=== PATIENT | male | born 1950 | race African-American/Black ===

== ENCOUNTER 2017-07-26 09:46 | Inpatient (IN) | payer OTHER ==
[2017-07-26 10:23] VITALS: BMI 23.1
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
[2017-07-26] MEDS ORDERED: P-EPHED 60MG/TRIPROLIDI 2.5MG TABLET PO PRN (14:40)
[2017-07-26] MEDS ORDERED: MAGNESIUM CITRATE 300 ML BOTTLE PO PRN (14:40)
[2017-07-26] MEDS ORDERED: hydrOXYzine PAMOATE 25 MG CAPSULE (FP) PO PRN (14:40)
[2017-07-26] MEDS ORDERED: MENTHOL/PHENOL 1 EACH UD MM PRN (14:40)
[2017-07-26] MEDS ORDERED: ACETAMINOPHEN 325 MG TABLET (FP) PO PRN (14:40)
[2017-07-26] MEDS ORDERED: LOPERAMIDE HCL 2 MG CAPSULE PO PRN (14:40)
[2017-07-26] MEDS ORDERED: MAG HYDROX/AL HYDROX/SIMETH 30 ML UNIT-DOSE CUP PO PRN (14:40)
[2017-07-26] MEDS ORDERED: MAGNESIUM HYDROX 2400MG/30ML ORAL SUSPENSION 30 ML CUP PO PRN (14:40)
[2017-07-26] MEDS ORDERED: chlordiazePOXIDE HCL 25 MG CAPSULE PO PRN (14:40)
[2017-07-26] MEDS ORDERED: diphenhydrAMINE HCL 50 MG CAPSULE PO PRN (14:40)
[2017-07-26] MEDS ORDERED: IBUPROFEN 400 MG TABLET (FP) PO PRN (14:40)
[2017-07-26] MEDS: GABAPENTIN 400 MG CAPSULE (FP) PO SCH ×2 (15:47→22:30)
[2017-07-26] MEDS ORDERED: ALBUTEROL SO4 6.7 GM HFA INHALER IH PRN (15:53)
[2017-07-26 16:28] LABS: URINE APPEARANCE CLEAR; URINE BILIRUBIN NEGATIVE (NEGATIVE); URINE BLOOD NEGATIVE (NEGATIVE); URINE COLOR LTYELLOW; URINE GLUCOSE (UA) NEGATIVE (NEGATIVE); URINE KETONE NEGATIVE (NEGATIVE); URINE LEUK ESTERASE NEGATIVE (NEGATIVE); URINE NITRITE NEGATIVE (NEGATIVE); URINE PROTEIN NEGATIVE (NEGATIVE); URINE UROBILINOGEN NEGATIVE mg/dL (0.2-1.0)
[2017-07-26] MEDS: PATIENT'S OWN MEDICATION (NON-FORMULARY) (Prednisolone 1% Ophthalmic [Pred Forte 1% -] 1 D OD SCH ×8 (16:35→23:13)
[2017-07-26] MEDS: chlordiazePOXIDE HCL 25 MG CAPSULE PO SCH ×2 (16:47→22:15)
[2017-07-26] MEDS ORDERED: KETOROLAC TROMETHAMINE OD SCH (22:00)
[2017-07-26] MEDS ORDERED: [UNRECOGNIZED DRUG - OTHER] OD SCH (22:00)
[2017-07-26] MEDS ORDERED: OPTHALMIC OD SCH (22:00)
[2017-07-26] MEDS ORDERED: KETOROLAC TROMETHAMINE 0.5% 5 ML BOTTLE OPTHALMIC OD SCH (22:00)
[2017-07-26] MEDS: PILOCARPINE 2% OPHTHALMIC SOLUTION 15 ML BOTTLE OS SCH (22:12)
[2017-07-26] MEDS: CYCLOPENTOLATE HCL 1% OPHTH SOLN 2 ML BOTTLE OD SCH ×3 (22:12→22:32)
[2017-07-26] MEDS: BRIMONIDINE TARTRATE 0.15% OPHTHALMIC 5 ML BOTTLE OS SCH (22:13)
[2017-07-26] MEDS: DORZOLAMIDE 2% HCL OPHTHALMIC SOLUTION 10 ML BOTTLE OS SCH (22:14)
[2017-07-26] MEDS: NAPROXEN 500 MG TABLET (FP) PO SCH (22:14)
[2017-07-26] MEDS: THIAMINE HCL 100 MG TABLET (FP) PO SCH (22:15)
[2017-07-26] MEDS: KETOROLAC TROMETHAMINE 0.5% OD SCH (22:15)
[2017-07-26] MEDS: OPTHALMIC OD SCH (22:15)
[2017-07-27] MEDS: PATIENT'S OWN MEDICATION (NON-FORMULARY) (Prednisolone 1% Ophthalmic [Pred Forte 1% -] 1 D OD SCH ×18 (00:10→17:40)
[2017-07-27] MEDS: GABAPENTIN 400 MG CAPSULE (FP) PO SCH ×3 (06:00→22:20)
[2017-07-27] MEDS: chlordiazePOXIDE HCL 25 MG CAPSULE PO SCH ×4 (06:01→22:20)
[2017-07-27] MEDS: OPTHALMIC OD SCH (06:03)
[2017-07-27] MEDS: KETOROLAC TROMETHAMINE 0.5% OD SCH (06:03)
[2017-07-27] MEDS: PILOCARPINE 2% OPHTHALMIC SOLUTION 15 ML BOTTLE OS SCH ×3 (06:04→21:09)
[2017-07-27] MEDS: BRIMONIDINE TARTRATE 0.15% OPHTHALMIC 5 ML BOTTLE OS SCH ×3 (06:20→21:05)
[2017-07-27] MEDS: DORZOLAMIDE 2% HCL OPHTHALMIC SOLUTION 10 ML BOTTLE OS SCH ×3 (06:21→21:11)
[2017-07-27] MEDS: PATIENT'S OWN MEDICATION (NON-FORMULARY) (Ipratropium/Albuterol Sulfate [Combivent Respima IH PRN ×2 (09:25→22:23)
[2017-07-27 09:46] LABS: MCHC 34.1 g/dl (32.0-35.9); MEAN PLT VOLUME 9.6 fl (7.5-11.1); PLATELET COUNT 120 K/MM3 (134-434); RDW 16.5 % (11.9-15.9); WHITE BLOOD COUNT 7.7 K/mm3 (4.0-10.0)
[2017-07-27 10:12] LABS: ALBUMIN 3.8 g/dl (3.4-5.0); ANION GAP 7 (8-16); CALCIUM 9.1 mg/dL (8.5-10.1); CO2 29 mmol/L (21-32); CREATININE 0.9 mg/dL (0.7-1.3); GLUCOSE,RANDOM 110 mg/dL (74-106); SGOT/AST 17 U/L (15-37); SGPT/ALT 21 U/L (12-78)
[2017-07-27 10:14] LABS: ALK PHOS 79 U/L (45-117); BILIRUBIN,TOTAL 0.7 mg/dL (0.2-1.0); TOT PROT 6.8 g/dl (6.4-8.2)
[2017-07-27] MEDS: CYCLOPENTOLATE HCL 1% OPHTH SOLN 2 ML BOTTLE OD SCH ×4 (10:16→21:06)
[2017-07-27] MEDS: PRENATAL VITAMINS W/ FOLIC ACID TABLET (FP) PO SCH (10:16)
[2017-07-27] MEDS: FINASTERIDE 5 MG TABLET (FP) PO SCH ×2 (10:16→14:48)
[2017-07-27] MEDS: NAPROXEN 500 MG TABLET (FP) PO SCH ×2 (10:16→22:20)
--- NOTE | 2017-07-27 10:34 | PN ---
[facility] CIWA - CIWA Score Nausea/Vomitin-No Nausea/No Vomiting Muscle Tremors: 4-Moderate,w/Arms Extend Anxiety: 4-Mod. Anxious/Guarded Agitation: 4-Moderately Restless Paroxysmal Sweats: 1-Minimal Palms Moist Orientation: 0-Oriented Tacttile Disturbances: 3-Moderate Itch/Numb/Burn Auditory Disturbances: 0-None Visual Disturbances: 0-None Headache: 0-None Present CIWA-Ar Total Score: 16 [facility] Progress Note (SOAP) Subjective: ANXIETY,SWEATS, FATIGUE. Objective: 07/27/17 10:34 Vital Signs Temperature 97.1 F L 07/27/17 09:38 Pulse Rate 94 H 07/27/17 09:38 Respiratory Rate 20 07/27/17 09:38 Blood Pressure 142/85 07/27/17 09:38 O2 Sat by Pulse Oximetry (%) Laboratory Last Values WBC 7.7 K/mm3 (4.0-10.0) 07/27/17 06:00 RBC 4.96 M/mm3 (4.00-5.60) 07/27/17 06:00 Hgb 14.9 GM/dL (11.7-16.9) 07/27/17 06:00 Hct 43.7 % (35.4-49) 07/27/17 06:00 MCV 88.0 fl (80-96) 07/27/17 06:00 MCH 30.0 pg (25.7-33.7) 07/27/17 06:00 MCHC 34.1 g/dl (32.0-35.9) 07/27/17 06:00 RDW 16.5 % (11.9-15.9) H 07/27/17 06:00 Plt Count 120 K/MM3 (134-434) L 07/27/17 06:00 MPV 9.6 fl (7.5-11.1) 07/27/17 06:00 Urine Color Ltyellow 07/26/17 15:00 Urine Appearance Clear 07/26/17 15:00 Urine pH 5.0 (5.0-8.0) 07/26/17 15:00 Ur Specific [place] 1.010 (1.005-1.025) 07/26/17 15:00 Urine Protein Negative (NEGATIVE) 07/26/17 15:00 Urine Glucose (UA) Negative (NEGATIVE) 07/26/17 15:00 Urine Ketones Negative (NEGATIVE) 07/26/17 15:00 Urine Blood Negative (NEGATIVE) 07/26/17 15:00 Urine Nitrite Negative (NEGATIVE) 07/26/17 15:00 Urine Bilirubin Negative (NEGATIVE) 07/26/17 15:00 Urine Urobilinogen Negative mg/dL (0.2-1.0) 07/26/17 15:00 OTHER LAB RESULTS PENDING Assessment: 07/27/17 10:34 WITHDRAWAL SX Plan: CONTINUE DETOX
--- NOTE | 2017-07-27 10:53 | CONSULT ---
[facility] Psychiatric Consult - Data Date of interview: 07/27/17 Admission source: [facility] Identifying data: Readmission to [facility] for this 67 y/o AA male seeking detox treatment on for alcohol,cocaine and marijuana dependence.Patient is ,a father of two,domiciled,disabled and supported on SSI benefits. Substance Abuse History: Discussed with patient.Mr López confirms this report. Smoking Cessation. Smoking history: Current some day smoker. Have you smoked in the past 12 months: No. If you are a former smoker, when did you quit?: 2013. Initiated information on smoking cessation: Yes. 'Breaking Loose ' booklet given: 07/27/17. - Substance & Tx. History. Hx Alcohol Use: Yes. Hx Substance Use: Yes. Substance Use Type: Alcohol, Cocaine. Hx Substance Use Treatment: Yes ([facility] 2002). - Substances Abused. Alcohol. Route: Oral. Frequency: Daily. Amount used: 1 PINT CORNELL. Age of first use: 38. Date of Last Use: 07/25/17. Cocaine. Route: Inhalation. Frequency: Daily. Amount used: $20. Age of first use: 21. Date of Last Use: 07/24/17. Marijuana/ Hashish. Route: Smoking. Frequency: Daily. Amount used: 1-2 PUFFS. Age of first use: 13. Date of Last Use: 07/24/17 Medical History: Consistent with glaucoma,hypertension,neuropathy,HIV infection since 2001,hepatitis C,arthritis (knees + right hip),recent history of CVA ( four years ago),COPD and antecedent of chlamydia + syphilis (treated). Psychiatric History: Patient denies history of psychiatric hospitalizations.He indicates,however,a therapeutic relationship with the [facility].Diagnosed,four months ago,at [facility] with Bipolar Disorder.Managed with seroquel 100 mg/hs.Mr López denies history of suicide attempts. Physical/Sexual Abuse/Trauma History: No reported history of abuse. Additional Comment: Urine Drug Screen Results: ROSEMARIE-Cocaine, OPI-Opiates.Noted. Mental Status Exam - Mental Status Exam Alert and Oriented to: Time, Place, Person Cognitive Function: Grossly Intact Patient Appearance: Disheveled (appears older than his stated age,frail) Mood: Withdrawn, Apprehensive Affect: Mood Congruent Patient Behavior: Fatigued, Appropriate, Cooperative Speech Pattern: Clear Voice Loudness: Normal Thought Process: Goal Oriented Thought Disorder: Not Present Hallucinations: Denies Suicidal Ideation: Denies Homicidal Ideation: Denies Insight/Judgement: Poor Sleep: Poorly, Difficulty falling asleep Appetite: Poor, Weight loss Gait/Station: Other (slow and unsteady) Psychiatric Findings - Problem List ([place] 1, 2,3) (1) Alcohol dependence with uncomplicated withdrawal Current Visit: Yes Status: Acute (2) Cocaine dependence Current Visit: Yes Status: Acute (3) Substance induced mood disorder Current Visit: Yes Status: Acute (4) Hypertension Current Visit: Yes Status: Chronic Qualifiers: Hypertension type: essential hypertension Qualified Code(s): I10 - Essential (primary) hypertension (5) Weight loss Current Visit: Yes Status: Chronic (6) COPD (chronic obstructive pulmonary disease) Current Visit: Yes Status: Chronic Qualifiers: COPD type: unspecified COPD Qualified Code(s): J44.9 - Chronic obstructive pulmonary disease, unspecified (7) Glaucoma, both eyes Current Visit: Yes Status: Chronic Qualifiers: Primary angle closure glaucoma type: unspecified type (8) HIV (human immunodeficiency virus infection) Current Visit: Yes Status: Chronic (9) Hepatitis C Current Visit: Yes Status: Chronic Qualifiers: Viral hepatitis chronicity: unspecified Hepatic coma status: without hepatic coma Qualified Code(s): B19.20 - Unspecified viral hepatitis C without hepatic coma (10) Neuropathy Current Visit: Yes Status: Chronic (11) Old cerebrovascular accident (CVA) without late effect Current Visit: Yes Status: Chronic (12) Hearing loss, left Current Visit: Yes Status: Chronic Qualifiers: Hearing loss type: unspecified Qualified Code(s): H91.92 - Unspecified hearing loss, left ear (13) Insomnia Current Visit: Yes Status: Acute - Initial Treatment Plan Initial Treatment Plan: Psychoeducation.Detoxification.Medications reconciled : no mention of seroquel.Review of recent pharmacy activity shows scripts for seroquel 400 mg/hs + zolpidem 10 mg/hs dated 07/07/17 + 07/10/17 respectively ([facility]).In view of this discrepancy,seroquel is temporarily placed on hold.Observe clinical course.
[2017-07-27] MEDS: OPTH OD SCH ×2 (13:52→21:18)
[2017-07-27] MEDS: KETOROLAC TROMETHAMINE OD SCH ×2 (13:52→21:18)
[2017-07-27] MEDS: TAMSULOSIN HCL 0.4 MG CAP.ER.24H (FP) PO SCH (14:45)
[2017-07-27] MEDS: prednisoLONE ACETATE 1% OPHTH SUSP 5 ML BOTTLE OD SCH ×7 (17:12→23:09)
[2017-07-27] MEDS: MOXIFLOXACIN HCL 0.5% OPHTHALMIC 3 ML BOTTLE OS SCH (21:12)
[2017-07-27] MEDS: LATANOPROST 0.005% OPHTH SOLN 2.5ML BOTTLE OS SCH (21:13)
[2017-07-27] MEDS ORDERED: PATIENT'S OWN MEDICATION (NON-FORMULARY) (Umeclidinium Bromide [Incruse Ellipta] 62.5 MCG) IH SCH (22:00)
[2017-07-27] MEDS ORDERED: OFLOXACIN 0.3% OPHTHALMIC SOLUTION 5 ML BOTTLE OS SCH (22:00)
[2017-07-27] MEDS: THIAMINE HCL 100 MG TABLET (FP) PO SCH (22:20)
[2017-07-28] MEDS: prednisoLONE ACETATE 1% OPHTH SUSP 5 ML BOTTLE OD SCH ×24 (00:10→23:02)
[2017-07-28] MEDS: GABAPENTIN 400 MG CAPSULE (FP) PO SCH ×3 (06:17→21:46)
[2017-07-28] MEDS: OPTH OD SCH ×3 (06:18→21:32)
[2017-07-28] MEDS: KETOROLAC TROMETHAMINE OD SCH ×3 (06:18→21:32)
[2017-07-28] MEDS: BRIMONIDINE TARTRATE 0.15% OPHTHALMIC 5 ML BOTTLE OS SCH ×3 (06:18→21:30)
[2017-07-28] MEDS: chlordiazePOXIDE HCL 25 MG CAPSULE PO SCH ×2 (06:18→11:15)
[2017-07-28] MEDS: PILOCARPINE 2% OPHTHALMIC SOLUTION 15 ML BOTTLE OS SCH ×3 (06:19→21:32)
[2017-07-28] MEDS: DORZOLAMIDE 2% HCL OPHTHALMIC SOLUTION 10 ML BOTTLE OS SCH ×3 (06:21→21:34)
[2017-07-28] MEDS: MOXIFLOXACIN HCL 0.5% OPHTHALMIC 3 ML BOTTLE OS SCH ×3 (06:21→21:34)
[2017-07-28] MEDS ORDERED: ALBUTEROL SO4 2.5/IPRATROPIUM 0.5 INH SOL 3 ML VIAL.NEB. NEB PRN (07:23)
[2017-07-28] MEDS ORDERED: ALBUTEROL SO4 0.083% IH SOL 2.5 MG/3 ML VIAL.NEB. NEB PRN (08:57)
[2017-07-28] MEDS: TAMSULOSIN HCL 0.4 MG CAP.ER.24H (FP) PO SCH (09:09)
[2017-07-28] MEDS: NON-FORMULARY MED TP SCH (09:09)
[2017-07-28] MEDS: PRENATAL VITAMINS W/ FOLIC ACID TABLET (FP) PO SCH (09:10)
[2017-07-28] MEDS: FINASTERIDE 5 MG TABLET (FP) PO SCH (09:10)
--- NOTE | 2017-07-28 09:53 | EKG ---
Test Reason : Blood Pressure : / mmHG Vent. Rate : 066 BPM Atrial Rate : 066 BPM P-R Int : 166 ms QRS Dur : 098 ms QT Int : 398 ms P-R-T Axes : 069 068 071 degrees QTc Int : 417 ms NORMAL SINUS RHYTHM NORMAL ECG NO PREVIOUS ECGS AVAILABLE Confirmed by ETHAN DAVILA, HARRY ([id number]) on 07/28/2017 9:53:12 AM Referred By: Confirmed By:HARRY LONG MD
[2017-07-28] MEDS ORDERED: PATIENT'S OWN MEDICATION (NON-FORMULARY) (Umeclidinium Bromide [Incruse Ellipta] 62.5 MCG) IH SCH (10:00)
[2017-07-28] MEDS: NAPROXEN 500 MG TABLET (FP) PO SCH ×2 (10:03→21:45)
[2017-07-28] MEDS: CYCLOPENTOLATE HCL 1% OPHTH SOLN 2 ML BOTTLE OD SCH ×4 (10:07→21:31)
--- NOTE | 2017-07-28 13:21 | PN ---
S CIWA - CIWA Score Nausea/Vomitin-Mild Nausea/No Vomiting Muscle Tremors: 3 Anxiety: 4-Mod. Anxious/Guarded Agitation: 3 Paroxysmal Sweats: 3 Orientation: 0-Oriented Tacttile Disturbances: 0-None Auditory Disturbances: 0-None Visual Disturbances: 0-None Headache: 0-None Present CIWA-Ar Total Score: 14 [facility] Progress Note (SOAP) Subjective: Anxiety,tremors,sweating,interrupted sleep,restless Objective: 07/28/17 13:20 Vital Signs - 8 hr 07/28/17 07/28/17 06:31 09:32 Temperature 96.7 F L 96.8 F L Pulse Rate 86 91 H Respiratory 20 16 Rate Blood Pressure 142/84 134/80 Laboratory Tests 07/26/17 07/27/17 07/27/17 15:00 06:00 06:00 WBC 7.7 RBC 4.96 Hgb 14.9 Hct 43.7 MCV 88.0 MCH 30.0 MCHC 34.1 RDW 16.5 H Plt Count 120 L MPV 9.6 Sodium 142 Potassium 3.9 Chloride 106 Carbon Dioxide 29 Anion Gap 7 L BUN 13 Creatinine 0.9 Creat Clearance w eGFR > 60 Random Glucose 110 H Calcium 9.1 Total Bilirubin 0.7 AST 17 ALT 21 Alkaline Phosphatase 79 Total Protein 6.8 Albumin 3.8 Urine Color Ltyellow Urine Appearance Clear Urine pH 5.0 Ur Specific [place] 1.010 Urine Protein Negative Urine Glucose (UA) Negative Urine Ketones Negative Urine Blood Negative Urine Nitrite Negative Urine Bilirubin Negative Urine Urobilinogen Negative RPR Titer 07/27/17 06:00 WBC RBC Hgb Hct MCV MCH MCHC RDW Plt Count MPV Sodium Potassium Chloride Carbon Dioxide Anion Gap BUN Creatinine Creat Clearance w eGFR Random Glucose Calcium Total Bilirubin AST ALT Alkaline Phosphatase Total Protein Albumin Urine Color Urine Appearance Urine pH Ur Specific [place] Urine Protein Urine Glucose (UA) Urine Ketones Urine Blood Urine Nitrite Urine Bilirubin Urine Urobilinogen RPR Titer Nonreactive labs noted Assessment: 07/28/17 13:20 Withdrawal sx Plan: Continue detox
[2017-07-28] MEDS: chlordiazePOXIDE 5 MG CAPSULE PO SCH ×2 (16:56→22:46)
[2017-07-28] MEDS: PATIENT'S OWN MEDICATION (NON-FORMULARY) (Ipratropium/Albuterol Sulfate [Combivent Respima IH SCH ×2 (17:09→21:46)
[2017-07-28] MEDS: guaiFENesin/D-METHORPHAN HB 10 ML UNIT-DOSE CUPS PO PRN (17:39)
--- NOTE | 2017-07-28 19:55 | PN ---
[facility] Progress Note Note: Psychiatry Attending's note (follow up) : Met with the patient earlier during daytime. Purpose : discussion of psychotropic medications. Mr López,unambiguously,declines to take seroquel. " I read about that medication.I want to stay away from its side effects." Non-adherent to his prescribed seroquel " for some time ".Fearful of developing diabetes. Patient argues that he is more interested in " talk therapy " than taking medications. He indicates his decision to take only zolpidem to address insomnia.Side effects explained to patient. Made aware of potential for parasomnias and sedation/accidental falls + morning drowsiness. Reminded of his current physical condition that already predisposes him to risk of falls/injuries. Declines proposed alternates to seroquel." I have been on haldol,risperdal, zyprexa,all that stuff." Patient states that he has " continued to do fine despite not taking that seroquel ". He is warned about the risks inherent to non-adherence to mood stabilizers : relapses,manic/psychotic episodes,rehospitalizations,deterioration of functioning and suicidality. Mr López is also informed of benefits of pharmacotherapy.Still refused to resume seroquel. Insomnia is addressed with benadryl.Will follow.
[2017-07-28] MEDS: LATANOPROST 0.005% OPHTH SOLN 2.5ML BOTTLE OS SCH (21:35)
[2017-07-28] MEDS: THIAMINE HCL 100 MG TABLET (FP) PO SCH (21:45)
[2017-07-29] MEDS: prednisoLONE ACETATE 1% OPHTH SUSP 5 ML BOTTLE OD SCH ×24 (00:10→23:00)
[2017-07-29] MEDS: GABAPENTIN 400 MG CAPSULE (FP) PO SCH ×3 (05:32→22:32)
[2017-07-29] MEDS: chlordiazePOXIDE 5 MG CAPSULE PO SCH ×2 (05:32→11:00)
[2017-07-29] MEDS: KETOROLAC TROMETHAMINE OD SCH ×3 (05:34→21:14)
[2017-07-29] MEDS: BRIMONIDINE TARTRATE 0.15% OPHTHALMIC 5 ML BOTTLE OS SCH ×3 (05:34→21:05)
[2017-07-29] MEDS: OPTH OD SCH ×3 (05:34→21:14)
[2017-07-29] MEDS: PILOCARPINE 2% OPHTHALMIC SOLUTION 15 ML BOTTLE OS SCH ×3 (05:34→21:14)
[2017-07-29] MEDS: MOXIFLOXACIN HCL 0.5% OPHTHALMIC 3 ML BOTTLE OS SCH ×3 (05:35→21:15)
[2017-07-29] MEDS: DORZOLAMIDE 2% HCL OPHTHALMIC SOLUTION 10 ML BOTTLE OS SCH ×3 (05:35→21:14)
[2017-07-29] MEDS: TAMSULOSIN HCL 0.4 MG CAP.ER.24H (FP) PO SCH (09:15)
[2017-07-29] MEDS: NON-FORMULARY MED TP SCH (10:10)
[2017-07-29] MEDS: CYCLOPENTOLATE HCL 1% OPHTH SOLN 2 ML BOTTLE OD SCH ×4 (10:10→21:13)
[2017-07-29] MEDS: PRENATAL VITAMINS W/ FOLIC ACID TABLET (FP) PO SCH (10:11)
[2017-07-29] MEDS: PATIENT'S OWN MEDICATION (NON-FORMULARY) (Ipratropium/Albuterol Sulfate [Combivent Respima IH SCH ×4 (10:55→22:35)
[2017-07-29] MEDS: NAPROXEN 500 MG TABLET (FP) PO SCH ×2 (11:02→22:32)
[2017-07-29] MEDS: FINASTERIDE 5 MG TABLET (FP) PO SCH (11:03)
[2017-07-29] MEDS: guaiFENesin/D-METHORPHAN HB 10 ML UNIT-DOSE CUPS PO PRN (11:05)
--- NOTE | 2017-07-29 11:47 | PN ---
[facility] Progress Note (SOAP) Subjective: Tremors, Body Aches, Anxious. Objective: PT. A & O X 2 (DISORIENTED ABOUT DAY /DATE). PT. OBSERVED AMBULATING ON UNIT. NO ACUTE DISTRESS. PT. DENIES CHEST PAIN. 07/29/17 11:44 Vital Signs Temperature 98.7 F 07/29/17 09:28 Pulse Rate 90 07/29/17 09:28 Respiratory Rate 20 07/29/17 09:28 Blood Pressure 137/84 07/29/17 09:28 O2 Sat by Pulse Oximetry (%) Laboratory Tests 07/26/17 07/27/17 07/27/17 15:00 06:00 06:00 WBC 7.7 RBC 4.96 Hgb 14.9 Hct 43.7 MCV 88.0 MCH 30.0 MCHC 34.1 RDW 16.5 H Plt Count 120 L MPV 9.6 Sodium 142 Potassium 3.9 Chloride 106 Carbon Dioxide 29 Anion Gap 7 L BUN 13 Creatinine 0.9 Creat Clearance w eGFR > 60 Random Glucose 110 H Calcium 9.1 Total Bilirubin 0.7 AST 17 ALT 21 Alkaline Phosphatase 79 Total Protein 6.8 Albumin 3.8 Urine Color Ltyellow Urine Appearance Clear Urine pH 5.0 Ur Specific [place] 1.010 Urine Protein Negative Urine Glucose (UA) Negative Urine Ketones Negative Urine Blood Negative Urine Nitrite Negative Urine Bilirubin Negative Urine Urobilinogen Negative RPR Titer 07/27/17 06:00 WBC RBC Hgb Hct MCV MCH MCHC RDW Plt Count MPV Sodium Potassium Chloride Carbon Dioxide Anion Gap BUN Creatinine Creat Clearance w eGFR Random Glucose Calcium Total Bilirubin AST ALT Alkaline Phosphatase Total Protein Albumin Urine Color Urine Appearance Urine pH Ur Specific [place] Urine Protein Urine Glucose (UA) Urine Ketones Urine Blood Urine Nitrite Urine Bilirubin Urine Urobilinogen RPR Titer Nonreactive LABS NOTED. Assessment: 07/29/17 11:45 WITHDRAWAL SYMPTOMS. Plan: CONTINUE DETOX.
[2017-07-29] MEDS: chlordiazePOXIDE HCL 10 MG CAPSULE PO SCH ×2 (16:47→22:32)
[2017-07-29] MEDS: LATANOPROST 0.005% OPHTH SOLN 2.5ML BOTTLE OS SCH (21:13)
[2017-07-29] MEDS: THIAMINE HCL 100 MG TABLET (FP) PO SCH (22:32)
[2017-07-29] MEDS ORDERED: QUEtiapine FUMARATE 100 MG TABLET (FP) PO ONE (23:15)
[2017-07-30] MEDS: chlordiazePOXIDE HCL 10 MG CAPSULE PO SCH (05:54)
[2017-07-30] MEDS: GABAPENTIN 400 MG CAPSULE (FP) PO SCH (05:55)
[2017-07-30] MEDS: prednisoLONE ACETATE 1% OPHTH SUSP 5 ML BOTTLE OD SCH ×7 (05:56→09:15)
[2017-07-30] MEDS: PILOCARPINE 2% OPHTHALMIC SOLUTION 15 ML BOTTLE OS SCH (06:08)
[2017-07-30] MEDS: MOXIFLOXACIN HCL 0.5% OPHTHALMIC 3 ML BOTTLE OS SCH (06:08)
[2017-07-30] MEDS: DORZOLAMIDE 2% HCL OPHTHALMIC SOLUTION 10 ML BOTTLE OS SCH (06:08)
[2017-07-30] MEDS: OPTH OD SCH (06:08)
[2017-07-30] MEDS: BRIMONIDINE TARTRATE 0.15% OPHTHALMIC 5 ML BOTTLE OS SCH (06:08)
[2017-07-30] MEDS: KETOROLAC TROMETHAMINE OD SCH (06:08)
[2017-07-30] MEDS: TAMSULOSIN HCL 0.4 MG CAP.ER.24H (FP) PO SCH (07:49)
[2017-07-30 09:52] VITALS: BP 158/82; PULSE 79; TEMP 96.4
--- NOTE | 2017-07-30 11:13 | DS ---
[facility] Detox Discharge Summary Admission Date: 07/26/17 Discharge Date: 07/30/17 - History Present History: Alcohol Dependence, Cocaine Dependence Pertinent Past History: HTN, COPD, Glaucoma, HIV - Physical Exam Results Vital Signs: Vital Signs Temperature 96.4 F L 07/30/17 09:51 Pulse Rate 79 07/30/17 09:51 Respiratory Rate 18 07/30/17 09:51 Blood Pressure 158/82 07/30/17 09:51 O2 Sat by Pulse Oximetry (%) Pertinent Admission Physical Exam Findings: withdrawal sx Laboratory Last Values WBC 7.7 K/mm3 (4.0-10.0) 07/27/17 06:00 RBC 4.96 M/mm3 (4.00-5.60) 07/27/17 06:00 Hgb 14.9 GM/dL (11.7-16.9) 07/27/17 06:00 Hct 43.7 % (35.4-49) 07/27/17 06:00 MCV 88.0 fl (80-96) 07/27/17 06:00 MCH 30.0 pg (25.7-33.7) 07/27/17 06:00 MCHC 34.1 g/dl (32.0-35.9) 07/27/17 06:00 RDW 16.5 % (11.9-15.9) H 07/27/17 06:00 Plt Count 120 K/MM3 (134-434) L 07/27/17 06:00 MPV 9.6 fl (7.5-11.1) 07/27/17 06:00 Sodium 142 mmol/L (136-145) 07/27/17 06:00 Potassium 3.9 mmol/L (3.5-5.1) 07/27/17 06:00 Chloride 106 mmol/L (98-107) 07/27/17 06:00 Carbon Dioxide 29 mmol/L (21-32) 07/27/17 06:00 Anion Gap 7 (8-16) L 07/27/17 06:00 BUN 13 mg/dL (7-18) 07/27/17 06:00 Creatinine 0.9 mg/dL (0.7-1.3) 07/27/17 06:00 Creat Clearance w eGFR > 60 (>60) 07/27/17 06:00 Random Glucose 110 mg/dL (74-106) H 07/27/17 06:00 Calcium 9.1 mg/dL (8.5-10.1) 07/27/17 06:00 Total Bilirubin 0.7 mg/dL (0.2-1.0) 07/27/17 06:00 AST 17 U/L (15-37) 07/27/17 06:00 ALT 21 U/L (12-78) 07/27/17 06:00 Alkaline Phosphatase 79 U/L (45-117) 07/27/17 06:00 Total Protein 6.8 g/dl (6.4-8.2) 07/27/17 06:00 Albumin 3.8 g/dl (3.4-5.0) 07/27/17 06:00 Urine Color Ltyellow 07/26/17 15:00 Urine Appearance Clear 07/26/17 15:00 Urine pH 5.0 (5.0-8.0) 07/26/17 15:00 Ur Specific [place] 1.010 (1.005-1.025) 07/26/17 15:00 Urine Protein Negative (NEGATIVE) 07/26/17 15:00 Urine Glucose (UA) Negative (NEGATIVE) 07/26/17 15:00 Urine Ketones Negative (NEGATIVE) 07/26/17 15:00 Urine Blood Negative (NEGATIVE) 07/26/17 15:00 Urine Nitrite Negative (NEGATIVE) 07/26/17 15:00 Urine Bilirubin Negative (NEGATIVE) 07/26/17 15:00 Urine Urobilinogen Negative mg/dL (0.2-1.0) 07/26/17 15:00 RPR Titer Nonreactive (NONREACTIVE) 07/27/17 06:00 labs noted - Treatment Hospital Course: Detox Protocol Followed, Detoxed Safely, Responded well, Discharged Condition Good Patient has Accepted a Rehab Referral to: Self help groups and f/u with [facility] - Medication Discharge Medications: Ambulatory Orders Brimonidine Tartrate [Alphagan 0.15% -] 1 drop OS TID 07/26/17 Cyclopentolate 1% Eye Drops [Cyclogyl 1% Eye Drops -] 1 drop OD ASDIR 07/26/17 Dorzolamide HCl [Trusopt 2%] 1 drop OS TID 07/26/17 Finasteride [Proscar -] 5 mg PO DAILY 07/26/17 Fluticasone/Vilanterol [Breo Ellipta 100-25 Mcg INH] 1 each IH BID 07/26/17 Gabapentin [Neurontin -] 1,200 mg PO Q8H 07/26/17 Ipratropium/Albuterol Sulfate [Combivent Respimat Inhal [place]] 4 gm IH QID PRN 07/26/17 Ketorolac Tromethamine 1 drop OD TID 07/26/17 [place] 2% [Pilostat 2% -] 1 drop OS TID 07/26/17 Prednisolone 1% Ophthalmic [Pred Forte 1% -] 0 ml OD QID 07/26/17 Umeclidinium [place] [Incruse Ellipta] 62.5 mcg IH BID 07/26/17 Latanoprost 0.005% Eye Drops [Xalatan 0.005% Eye Drops -] 1 drop OS HS 07/27/17 Non-Formulary 1 TP DAILY MDD 2 to 3 x daily 07/27/17 Ofloxacin 0.3% Ophth Soln [Ocuflox 0.3% Eye Drops -] 1 drop OS TID 07/27/17 Tamsulosin HCl [Flomax] 0.4 mg PO DAILY 07/27/17 Naproxen [Naprosyn -] 500 mg PO BID PRN #30 mg 07/30/17 - Diagnosis (1) Alcohol dependence with uncomplicated withdrawal Status: Acute (2) Cocaine dependence Status: Acute Qualifiers: Substance use status: uncomplicated Qualified Code(s): F14.20 - Cocaine dependence, uncomplicated (3) Insomnia Status: Acute (4) Substance induced mood disorder Status: Acute (5) COPD (chronic obstructive pulmonary disease) Status: Chronic Qualifiers: COPD type: unspecified COPD Qualified Code(s): J44.9 - Chronic obstructive pulmonary disease, unspecified (6) Glaucoma, both eyes Status: Chronic Qualifiers: Primary angle closure glaucoma type: unspecified type (7) HIV (human immunodeficiency virus infection) Status: Chronic (8) Hepatitis C Status: Chronic Qualifiers: Viral hepatitis chronicity: unspecified Hepatic coma status: without hepatic coma Qualified Code(s): B19.20 - Unspecified viral hepatitis C without hepatic coma (9) Hypertension Status: Chronic Qualifiers: Hypertension type: essential hypertension Qualified Code(s): I10 - Essential (primary) hypertension (10) Old cerebrovascular accident (CVA) without late effect Status: Chronic - AMA Did Patient Leave Against Medical Advice: No
== END 2017-07-30 10:01 | disposition home or self-care (01) | DRG 897 ==
LOC: YASAS 09:46 → Y3N 14:14
PROVIDERS: ADMIT Internal Medicine; ATTEND Internal Medicine
PROC: HZ2ZZZZ Detoxification Services for Substance Abuse Treatment (ICD-10-PCS; principal; 2017-07-26)
DX: F10.230 Alcohol dependence with withdrawal, uncomplicated (principal); F14.20 Cocaine dependence, uncomplicated; F19.24 Other psychoactive substance dependence with psychoactive substance-induced mood disorder; G47.00 Insomnia, unspecified; I10 Essential (primary) hypertension; B19.20 Unspecified viral hepatitis C without hepatic coma; J44.9 Chronic obstructive pulmonary disease, unspecified; Z21 Asymptomatic human immunodeficiency virus [HIV] infection status; Z86.73 Personal history of transient ischemic attack (TIA), and cerebral infarction without residual deficits; H40.9 Unspecified glaucoma; H91.92 Unspecified hearing loss, left ear; R63.4 Abnormal weight loss; Z68.23 Body mass index [BMI] 23.0-23.9, adult
CPT/HCPCS: 36415; 71020-TC; 80053; 81003; 85027; 86593; 93005; 93010

== ENCOUNTER 2017-11-29 10:24 | Inpatient (IN) | payer OTHER ==
[2017-11-29 10:53] VITALS: BMI 21.5
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
[2017-11-29] MEDS ORDERED: P-EPHED 60MG/TRIPROLIDI 2.5MG TABLET PO PRN (14:12)
[2017-11-29] MEDS ORDERED: guaiFENesin/D-METHORPHAN HB 10 ML UNIT-DOSE CUPS PO PRN (14:12)
[2017-11-29] MEDS ORDERED: LOPERAMIDE HCL 2 MG CAPSULE PO PRN (14:12)
[2017-11-29] MEDS ORDERED: MAGNESIUM HYDROX 2400MG/30ML ORAL SUSPENSION 30 ML CUP PO PRN (14:12)
[2017-11-29] MEDS ORDERED: MENTHOL/PHENOL 1 EACH UD MM PRN (14:12)
[2017-11-29] MEDS ORDERED: ACETAMINOPHEN 325 MG TABLET (FP) PO PRN (14:12)
[2017-11-29] MEDS ORDERED: MAGNESIUM CITRATE 300 ML BOTTLE PO PRN (14:12)
[2017-11-29] MEDS ORDERED: MAG HYDROX/AL HYDROX/SIMETH 30 ML UNIT-DOSE CUP PO PRN (14:12)
[2017-11-29] MEDS ORDERED: PERMETHRIN 5% TOPICAL CREAM 60 GM TUBE TP ONE (14:27)
[2017-11-29] MEDS: chlordiazePOXIDE HCL 25 MG CAPSULE PO PRN (15:58)
--- NOTE | 2017-11-29 16:51 | CONSULT ---
[facility] Psychiatric Consult - Data Date of interview: 11/29/17 Admission source: [facility] Identifying data: Pt. is a 67 year old male, single, without kids, and currently employed. This is one of multiple admissions for patient. Pt. admitted to for alcohol, opiate, and benzodiazepine abuse. Substance Abuse History: Following information confirmed with Mr. López: Smoking Cessation. Smoking history: Former smoker. Have you smoked in the past 12 months: No. If you are a former smoker, when did you quit?: 2013. Hx Chewing Tobacco Use: No. Initiated information on smoking cessation: No. - Substances Abused. Alcohol. Route: Oral. Frequency: Daily. Amount used: 1 PINT VODKA. Age of first use: 24. Date of Last Use: 11/28/17. Cocaine. Route: Smoking. Frequency: 1-2 times per week. Amount used: $20. Age of first use: 44. Date of Last Use: 11/23/17. XANAX. Route: Oral. Frequency : 1-2 times per week. Amount used: 2MG. Age of first use: 33. Date of Last Use: 11/23/17 Medical History: Asthma, Hypertension, COPD, and CVA. Psychiatric History: Pt. reports two psychiatric hospitalizations. First hospitalization was approximately thirty years ago and most recent hospitalization was fourteen years ago at [facility]. States he has a diagnosis of bipolar disorder and Schizoaffective disorder. Currently does not have an OPC. Was seeing a psychiatrist at [facility] but the mental health services was discontinued. States he is prescribed seroquel 400mg qhs, cogentin 1.5mg qhs and ambien 10mg qhs. Pharmacy claims reviewed and verified although cogentin 1.5mg was not noted. Reports last taking seroquel 50mg 2-3 weeks ago. States he has not taken a dose higher then seroquel 50mg in over two months. Pt. denies h/o suicide attempts. Pt. denies suicidal and homicidal ideation. Physical/Sexual Abuse/Trauma History: Denies. Mental Status Exam - Mental Status Exam Alert and Oriented to: Time, Place, Person Cognitive Function: Good Patient Appearance: Well Groomed Mood: Euthymic Affect: Mood Congruent Patient Behavior: Appropriate, Cooperative Speech Pattern: Appropriate Voice Loudness: Normal Thought Process: Goal Oriented Thought Disorder: Not Present Hallucinations: Denies Suicidal Ideation: Denies Homicidal Ideation: Denies Sleep: Poorly Appetite: Fair Muscle strength/Tone: Normal Gait/Station: Normal Psychiatric Findings - Problem List (Wilmer 1, 2,3) (1) Alcohol dependence with uncomplicated withdrawal Current Visit: Yes Status: Acute (2) Cocaine dependence Current Visit: Yes Status: Acute Qualifiers: Substance use status: uncomplicated Qualified Code(s): F14.20 - Cocaine dependence, uncomplicated (3) Schizoaffective disorder Current Visit: Yes Status: Chronic Comment: Self reports. (4) Bipolar disorder Current Visit: Yes Status: Chronic Comment: Self reports. (5) Insomnia Current Visit: Yes Status: Acute - Initial Treatment Plan Initial Treatment Plan: Psychoeducation provided. Detoxification provided. Seroquel 50mg qhs ( with the plan to titrate seroquel to 150mg) and ambien 5mg qhs ordered PRN. Benefits and side effects discussed. Verbal consent given. Will continue to monitor patient.
[2017-11-29 17:02] LABS: URINE APPEARANCE CLEAR; URINE BILIRUBIN NEGATIVE (NEGATIVE); URINE BLOOD NEGATIVE (NEGATIVE); URINE COLOR YELLOW; URINE GLUCOSE (UA) NEGATIVE (NEGATIVE); URINE KETONE NEGATIVE (NEGATIVE); URINE LEUK ESTERASE NEGATIVE (NEGATIVE); URINE NITRITE NEGATIVE (NEGATIVE); URINE PROTEIN NEGATIVE (NEGATIVE); URINE UROBILINOGEN 4.0 E.U/dl mg/dL (0.2-1.0)
[2017-11-29 17:07] LABS: HEMATOCRIT 43.8 % (35.4-49); HEMOGLOBIN 14.9 GM/dL (11.7-16.9); MCH 30.7 pg (25.7-33.7); MEAN CELL VOLUME 90.5 fl (80-96); MEAN PLT VOLUME 11.2 fl (7.5-11.1); PLATELET COUNT 132 K/MM3 (134-434); RBC 4.84 M/mm3 (4.00-5.60); RDW 15.5 % (11.9-15.9); WHITE BLOOD COUNT 5.8 K/mm3 (4.0-10.0)
[2017-11-29] MEDS: chlordiazePOXIDE HCL 25 MG CAPSULE PO SCH ×2 (19:00→22:20)
[2017-11-29 20:02] LABS: ALBUMIN 4.2 g/dl (3.4-5.0); ANION GAP 10 (8-16); BLOOD UREA NITROGEN 11 mg/dL (7-18); CALCIUM 8.5 mg/dL (8.5-10.1); CHLORIDE 106 mmol/L (98-107); CO2 26 mmol/L (21-32); CREATININE 0.8 mg/dL (0.7-1.3); GLUCOSE,RANDOM 104 mg/dL (74-106); POTASSIUM 3.9 mmol/L (3.5-5.1); SGOT/AST 19 U/L (15-37); SGPT/ALT 23 U/L (12-78); SODIUM 142 mmol/L (136-145)
[2017-11-29 20:03] LABS: ALK PHOS 78 U/L (45-117); BILIRUBIN,TOTAL 0.6 mg/dL (0.2-1.0); TOT PROT 6.9 g/dl (6.4-8.2)
[2017-11-29] MEDS ORDERED: PATIENT'S OWN MEDICATION (NON-FORMULARY) (Ipratropium/Albuterol Sulfate [Combivent Respima IH PRN (20:17)
[2017-11-29] MEDS ORDERED: CYCLOPENTOLATE HCL 1% OPHTH SOLN 2 ML BOTTLE OD SCH (20:30)
[2017-11-29] MEDS: IBUPROFEN 400 MG TABLET (FP) PO PRN (20:46)
[2017-11-29] MEDS ORDERED: QUEtiapine FUMARATE 50 MG TABLET PO SCH (22:00)
[2017-11-29] MEDS ORDERED: ZOLPIDEM TARTRATE 5 MG TABLET PO PRN (22:00)
[2017-11-29] MEDS ORDERED: PATIENT'S OWN MEDICATION (NON-FORMULARY) (Umeclidinium Bromide [Incruse Ellipta] 62.5 MCG) IH SCH (22:00)
[2017-11-29] MEDS: THIAMINE HCL 100 MG TABLET (FP) PO SCH (22:20)
[2017-11-29] MEDS: TAMSULOSIN HCL 0.4 MG CAP.ER.24H (FP) PO SCH (22:20)
[2017-11-29] MEDS: GABAPENTIN 400 MG CAPSULE (FP) PO SCH (22:20)
[2017-11-29] MEDS: KETOROLAC TROMETHAMINE 0.5% 5 ML BOTTLE OPTHALMIC OD SCH (22:34)
[2017-11-29] MEDS: prednisoLONE ACETATE 1% OPHTH SUSP 5 ML BOTTLE OD SCH (22:35)
[2017-11-29] MEDS: DORZOLAMIDE 2% HCL OPHTHALMIC SOLUTION 10 ML BOTTLE OS SCH (22:35)
[2017-11-29] MEDS: BRIMONIDINE TARTRATE 0.15% OPHTHALMIC 5 ML BOTTLE OS SCH (22:36)
[2017-11-29] MEDS: PILOCARPINE 2% OPHTHALMIC SOLUTION 15 ML BOTTLE OS SCH (22:37)
[2017-11-29] MEDS: OFLOXACIN 0.3% OPHTHALMIC SOLUTION 5 ML BOTTLE OS SCH (22:38)
[2017-11-29] MEDS: LATANOPROST 0.005% OPHTH SOLN 2.5ML BOTTLE OS SCH (23:57)
[2017-11-30] MEDS: chlordiazePOXIDE HCL 25 MG CAPSULE PO SCH ×4 (06:57→23:25)
[2017-11-30] MEDS: GABAPENTIN 400 MG CAPSULE (FP) PO SCH ×3 (06:58→22:29)
[2017-11-30] MEDS: DORZOLAMIDE 2% HCL OPHTHALMIC SOLUTION 10 ML BOTTLE OS SCH (07:15)
[2017-11-30] MEDS: BRIMONIDINE TARTRATE 0.15% OPHTHALMIC 5 ML BOTTLE OS SCH ×2 (07:15→11:11)
[2017-11-30] MEDS ORDERED: ALBUTEROL SO4 18 GM HFA INHALER IH PRN (07:32)
[2017-11-30] MEDS: KETOROLAC TROMETHAMINE 0.5% 5 ML BOTTLE OPTHALMIC OD SCH (08:23)
[2017-11-30] MEDS: OFLOXACIN 0.3% OPHTHALMIC SOLUTION 5 ML BOTTLE OS SCH (08:23)
[2017-11-30] MEDS: PILOCARPINE 2% OPHTHALMIC SOLUTION 15 ML BOTTLE OS SCH (08:24)
--- NOTE | 2017-11-30 09:26 | PN ---
S CIWA - CIWA Score Nausea/Vomitin Muscle Tremors: 3 Anxiety: 4-Mod. Anxious/Guarded Agitation: 4-Moderately Restless Paroxysmal Sweats: 3 Orientation: 0-Oriented Tacttile Disturbances: 1-Very Mild Itch/Numbness Auditory Disturbances: 0-None Visual Disturbances: 0-None Headache: 1-Very Mild CIWA-Ar Total Score: 19 [facility] Progress Note (SOAP) Subjective: nausea, sweats, interrupted sleeep, anxiety, tremosr, refusing shower c/p arthritis pain Objective: 11/30/17 09:25 Vital Signs - 24 hr 11/29/17 11/29/17 11/29/17 10:49 17:49 21:50 Temperature 96.7 F L 97.9 F 98.2 F Pulse Rate 74 78 18 L Respiratory 20 18 18 Rate Blood Pressure 122/73 127/83 149/88 11/30/17 11/30/17 11/30/17 00:30 03:30 06:23 Temperature 97.9 F Pulse Rate 66 Respiratory 18 18 16 Rate Blood Pressure 141/90 Laboratory Tests 11/29/17 11/29/17 11/29/17 11:39 15:00 15:00 WBC 5.8 RBC 4.84 Hgb 14.9 Hct 43.8 MCV 90.5 MCH 30.7 MCHC 34.0 RDW 15.5 Plt Count 132 L MPV 11.2 H D Sodium 142 Potassium 3.9 Chloride 106 Carbon Dioxide 26 Anion Gap 10 BUN 11 Creatinine 0.8 Creat Clearance w eGFR > 60 POC Glucometer 133 Random Glucose 104 Calcium 8.5 Total Bilirubin 0.6 AST 19 ALT 23 Alkaline Phosphatase 78 Total Protein 6.9 Albumin 4.2 Urine Color Urine Appearance Urine pH Ur Specific [place] Urine Protein Urine Glucose (UA) Urine Ketones Urine Blood Urine Nitrite Urine Bilirubin Urine Urobilinogen Ur Leukocyte Esterase 11/29/17 11/30/17 15:00 07:01 WBC RBC Hgb Hct MCV MCH MCHC RDW Plt Count MPV Sodium Potassium Chloride Carbon Dioxide Anion Gap BUN Creatinine Creat Clearance w eGFR POC Glucometer 133 Random Glucose Calcium Total Bilirubin AST ALT Alkaline Phosphatase Total Protein Albumin Urine Color Yellow Urine Appearance Clear Urine pH 6.0 Ur Specific [place] 1.014 Urine Protein Negative Urine Glucose (UA) Negative Urine Ketones Negative Urine Blood Negative Urine Nitrite Negative Urine Bilirubin Negative Urine Urobilinogen 4.0 e.u/dl Ur Leukocyte Esterase Negative Assessment: 11/30/17 09:26 withdrawal sx, cont detox, encourage ambualtion, told to shower to wash off medication, pain medications ordered, ensure
[2017-11-30] MEDS ORDERED: ALBUTEROL SO4 2.5/IPRATROPIUM 0.5 INH SOL 3 ML VIAL.NEB. NEB PRN (09:56)
[2017-11-30] MEDS: prednisoLONE ACETATE 1% OPHTH SUSP 5 ML BOTTLE OD SCH ×4 (11:11→22:31)
[2017-11-30] MEDS: TAMSULOSIN HCL 0.4 MG CAP.ER.24H (FP) PO SCH (11:13)
[2017-11-30] MEDS: chlordiazePOXIDE HCL 25 MG CAPSULE PO PRN (11:13)
[2017-11-30] MEDS: PRENATAL VITAMINS W/ FOLIC ACID TABLET (FP) PO SCH (11:13)
--- NOTE | 2017-11-30 14:10 | EKG ---
Test Reason : Blood Pressure : / mmHG Vent. Rate : 071 BPM Atrial Rate : 071 BPM P-R Int : 182 ms QRS Dur : 082 ms QT Int : 378 ms P-R-T Axes : 076 053 063 degrees QTc Int : 410 ms NORMAL SINUS RHYTHM NORMAL ECG WHEN COMPARED WITH ECG OF 26-JUL-2017 15:55, NONSPECIFIC T WAVE ABNORMALITY NOW EVIDENT IN LATERAL LEADS Confirmed by MD Marsha, Richard ([id number]) on 11/30/2017 2:10:04 PM Also confirmed by MD MAKEDA, SINDY ([id number]) on 11/30/2017 2:10:08 PM Referred By: Confirmed By:SINDY ASHFORD MD
[2017-11-30] MEDS: CYCLOBENZAPRINE HCL 5 MG TABLET PO SCH ×2 (15:06→22:29)
[2017-11-30] MEDS: BRIMONIDINE TARTRATE 0.15% OPHTHALMIC 5 ML BOTTLE OU SCH ×2 (15:08→22:34)
[2017-11-30] MEDS: DORZOLAMIDE 2% HCL OPHTHALMIC SOLUTION 10 ML BOTTLE OU SCH ×2 (15:09→22:32)
--- NOTE | 2017-11-30 17:19 | PN ---
[facility] Progress Note Note: Pt. with a medication regime of seroquel 400mg qhs although reports not taking 400mg of seroquel in several months. Pt. able to tolerate seroquel 50mg qhs. No complaints of oversedation or dizziness. Seroquel increased to 100mg qhs.
[2017-11-30] MEDS: THIAMINE HCL 100 MG TABLET (FP) PO SCH (22:29)
[2017-11-30] MEDS: QUEtiapine FUMARATE 100 MG TABLET (FP) PO SCH (22:29)
[2017-11-30] MEDS: LATANOPROST 0.005% OPHTH SOLN 2.5ML BOTTLE OS SCH (22:30)
[2017-12-01] MEDS: chlordiazePOXIDE HCL 25 MG CAPSULE PO SCH ×2 (06:11→11:00)
[2017-12-01] MEDS: GABAPENTIN 400 MG CAPSULE (FP) PO SCH ×3 (06:54→21:49)
[2017-12-01] MEDS: CYCLOBENZAPRINE HCL 5 MG TABLET PO SCH ×3 (06:55→21:49)
[2017-12-01] MEDS: BRIMONIDINE TARTRATE 0.15% OPHTHALMIC 5 ML BOTTLE OU SCH ×3 (06:59→21:47)
[2017-12-01] MEDS: DORZOLAMIDE 2% HCL OPHTHALMIC SOLUTION 10 ML BOTTLE OU SCH ×3 (06:59→21:47)
[2017-12-01] MEDS: INSULIN SLIDING SCALE (NOVOLOG) 1 VIAL SQ SCH (07:00)
[2017-12-01] MEDS: TAMSULOSIN HCL 0.4 MG CAP.ER.24H (FP) PO SCH (10:00)
--- NOTE | 2017-12-01 10:15 | PN ---
S CIWA - CIWA Score Nausea/Vomitin Muscle Tremors: 3 Anxiety: 3 Agitation: 2 Paroxysmal Sweats: 1-Minimal Palms Moist Orientation: 0-Oriented Tacttile Disturbances: 1-Very Mild Itch/Numbness Auditory Disturbances: 1-Very Mild Visual Disturbances: 0-None Headache: 2-Mild CIWA-Ar Total Score: 16 [facility] Progress Note (SOAP) Subjective: ALERT,IRRITABLE,ANXIOUS,INTERRUPTED SLEEP,TREMOR Objective: 12/01/17 10:12 Vital Signs Temperature 97.7 F 12/01/17 10:00 Pulse Rate 91 H 12/01/17 10:00 Respiratory Rate 20 12/01/17 10:00 Blood Pressure 149/88 12/01/17 10:00 O2 Sat by Pulse Oximetry (%) EKG NSR,NORMAL ECG Laboratory Last Values WBC 5.8 K/mm3 (4.0-10.0) 11/29/17 15:00 RBC 4.84 M/mm3 (4.00-5.60) 11/29/17 15:00 Hgb 14.9 GM/dL (11.7-16.9) 11/29/17 15:00 Hct 43.8 % (35.4-49) 11/29/17 15:00 MCV 90.5 fl (80-96) 11/29/17 15:00 MCH 30.7 pg (25.7-33.7) 11/29/17 15:00 MCHC 34.0 g/dl (32.0-35.9) 11/29/17 15:00 RDW 15.5 % (11.9-15.9) 11/29/17 15:00 Plt Count 132 K/MM3 (134-434) L 11/29/17 15:00 MPV 11.2 fl (7.5-11.1) H D 11/29/17 15:00 Sodium 142 mmol/L (136-145) 11/29/17 15:00 Potassium 3.9 mmol/L (3.5-5.1) 11/29/17 15:00 Chloride 106 mmol/L (98-107) 11/29/17 15:00 Carbon Dioxide 26 mmol/L (21-32) 11/29/17 15:00 Anion Gap 10 (8-16) 11/29/17 15:00 BUN 11 mg/dL (7-18) 11/29/17 15:00 Creatinine 0.8 mg/dL (0.7-1.3) 11/29/17 15:00 Creat Clearance w eGFR > 60 (>60) 11/29/17 15:00 POC Glucometer 93 UNITS (80-120) 12/01/17 06:43 Random Glucose 104 mg/dL (74-106) 11/29/17 15:00 Calcium 8.5 mg/dL (8.5-10.1) 11/29/17 15:00 Total Bilirubin 0.6 mg/dL (0.2-1.0) 11/29/17 15:00 AST 19 U/L (15-37) 11/29/17 15:00 ALT 23 U/L (12-78) 11/29/17 15:00 Alkaline Phosphatase 78 U/L (45-117) 11/29/17 15:00 Total Protein 6.9 g/dl (6.4-8.2) 11/29/17 15:00 Albumin 4.2 g/dl (3.4-5.0) 11/29/17 15:00 Urine Color Yellow 11/29/17 15:00 Urine Appearance Clear 11/29/17 15:00 Urine pH 6.0 (5.0-8.0) 11/29/17 15:00 Ur Specific [place] 1.014 (1.001-1.035) 11/29/17 15:00 Urine Protein Negative (NEGATIVE) 11/29/17 15:00 Urine Glucose (UA) Negative (NEGATIVE) 11/29/17 15:00 Urine Ketones Negative (NEGATIVE) 11/29/17 15:00 Urine Blood Negative (NEGATIVE) 11/29/17 15:00 Urine Nitrite Negative (NEGATIVE) 11/29/17 15:00 Urine Bilirubin Negative (NEGATIVE) 11/29/17 15:00 Urine Urobilinogen 4.0 e.u/dl mg/dL (0.2-1.0) 11/29/17 15:00 Ur Leukocyte Esterase Negative (NEGATIVE) 11/29/17 15:00 RPR Titer Nonreactive (NONREACTIVE) 11/29/17 15:00 12/01/17 10:14 BGM 93 Assessment: 12/01/17 10:14 WITHDRAWAL SYMPTOM Plan: CONTINUE DETOX
[2017-12-01] MEDS: prednisoLONE ACETATE 1% OPHTH SUSP 5 ML BOTTLE OD SCH ×4 (11:00→21:46)
[2017-12-01] MEDS: PRENATAL VITAMINS W/ FOLIC ACID TABLET (FP) PO SCH (11:10)
[2017-12-01] MEDS: chlordiazePOXIDE 5 MG CAPSULE PO SCH ×2 (18:12→22:36)
[2017-12-01] MEDS: LATANOPROST 0.005% OPHTH SOLN 2.5ML BOTTLE OS SCH (21:46)
[2017-12-01] MEDS: THIAMINE HCL 100 MG TABLET (FP) PO SCH (21:47)
[2017-12-01] MEDS: QUEtiapine FUMARATE 100 MG TABLET (FP) PO SCH (21:49)
[2017-12-02] MEDS: chlordiazePOXIDE 5 MG CAPSULE PO SCH ×2 (06:00→10:44)
[2017-12-02] MEDS: CYCLOBENZAPRINE HCL 5 MG TABLET PO SCH ×3 (06:52→22:00)
[2017-12-02] MEDS: GABAPENTIN 400 MG CAPSULE (FP) PO SCH ×3 (06:52→21:44)
[2017-12-02] MEDS: BRIMONIDINE TARTRATE 0.15% OPHTHALMIC 5 ML BOTTLE OU SCH ×3 (06:59→21:47)
[2017-12-02] MEDS: INSULIN SLIDING SCALE (NOVOLOG) 1 VIAL SQ SCH (07:00)
[2017-12-02] MEDS: DORZOLAMIDE 2% HCL OPHTHALMIC SOLUTION 10 ML BOTTLE OU SCH ×3 (07:00→21:47)
--- NOTE | 2017-12-02 10:13 | PN ---
[facility] Progress Note (SOAP) Subjective: ALERT,INTERRUPTED SLEEP,PAIN IN THE RIGHT HIP,PAIN IN THE BODY Objective: 12/02/17 10:16 Vital Signs Temperature 97.5 F L 12/02/17 06:00 Pulse Rate 69 12/02/17 06:00 Respiratory Rate 18 12/02/17 06:00 Blood Pressure 145/91 12/02/17 06:00 O2 Sat by Pulse Oximetry (%) Assessment: 12/02/17 10:16 WITHDRAWAL SYMPTOM Plan: CONTINUE DETOX,LIDODERM PATCH,DISCHARGE IN AM
[2017-12-02] MEDS ORDERED: LIDOCAINE 5% TOPICAL PATCH TP SCH (10:15)
[2017-12-02] MEDS: TAMSULOSIN HCL 0.4 MG CAP.ER.24H (FP) PO SCH (10:44)
[2017-12-02] MEDS: PRENATAL VITAMINS W/ FOLIC ACID TABLET (FP) PO SCH (10:44)
[2017-12-02] MEDS: prednisoLONE ACETATE 1% OPHTH SUSP 5 ML BOTTLE OD SCH ×4 (11:11→21:45)
[2017-12-02] MEDS: chlordiazePOXIDE HCL 10 MG CAPSULE PO SCH ×2 (17:34→22:01)
[2017-12-02] MEDS: QUEtiapine FUMARATE 100 MG TABLET (FP) PO SCH (21:44)
[2017-12-02] MEDS: THIAMINE HCL 100 MG TABLET (FP) PO SCH (21:44)
[2017-12-02] MEDS: LATANOPROST 0.005% OPHTH SOLN 2.5ML BOTTLE OS SCH (21:44)
[2017-12-02] MEDS ORDERED: LIDOCAINE PATCH REMOVAL MC SCH (22:00)
[2017-12-03] MEDS: GABAPENTIN 400 MG CAPSULE (FP) PO SCH (06:36)
[2017-12-03] MEDS: chlordiazePOXIDE HCL 10 MG CAPSULE PO SCH (06:36)
[2017-12-03] MEDS: CYCLOBENZAPRINE HCL 5 MG TABLET PO SCH (06:36)
[2017-12-03] MEDS: BRIMONIDINE TARTRATE 0.15% OPHTHALMIC 5 ML BOTTLE OU SCH (06:38)
[2017-12-03] MEDS: DORZOLAMIDE 2% HCL OPHTHALMIC SOLUTION 10 ML BOTTLE OU SCH (06:38)
[2017-12-03] MEDS: INSULIN SLIDING SCALE (NOVOLOG) 1 VIAL SQ SCH (06:40)
--- NOTE | 2017-12-03 09:08 | DS ---
[facility] Detox Discharge Summary Admission Date: 11/29/17 Discharge Date: 12/03/17 - History Present History: Alcohol Dependence, Cocaine Dependence Pertinent Past History: HEPATITIS C HYPERTENSION INSOMNIA SUBSTANCE INDUCED MOOD DISORDER ARTHRITIS OF RIGHT HIP FREQUENT FALL - Physical Exam Results Vital Signs: Vital Signs Temperature 96.8 F L 12/03/17 06:19 Pulse Rate 76 12/03/17 06:19 Respiratory Rate 17 12/03/17 06:19 Blood Pressure 158/93 12/03/17 06:19 O2 Sat by Pulse Oximetry (%) Pertinent Admission Physical Exam Findings: WITHDRAWAL SYMPTOM AND FINDING - Treatment Hospital Course: Detox Protocol Followed, Detoxed Safely, Responded well, Discharged Condition Good Patient has Accepted a Rehab Referral to: DECLINED - Medication Discharge Medications: Ambulatory Orders Brimonidine Tartrate [Alphagan 0.15% -] 1 drop OS TID 07/26/17 Cyclopentolate 1% Eye Drops [Cyclogyl 1% Eye Drops -] 1 drop OD ASDIR 07/26/17 Dorzolamide HCl [Trusopt 2%] 1 drop OS TID 07/26/17 Fluticasone/Vilanterol [Breo Ellipta 100-25 Mcg INH] 1 each IH BID 07/26/17 Gabapentin [Neurontin -] 1,200 mg PO Q8H 07/26/17 Ipratropium/Albuterol Sulfate [Combivent Respimat Inhal Copen] 4 gm IH QID PRN 07/26/17 [place] 2% [Pilostat 2% -] 1 drop OS TID 07/26/17 Prednisolone 1% Ophthalmic [Pred Forte 1% -] 0 ml OD QID 07/26/17 Umeclidinium [place] [Incruse Ellipta] 62.5 mcg IH BID 07/26/17 Latanoprost 0.005% Eye Drops [Xalatan 0.005% Eye Drops -] 1 drop OS HS 07/27/17 Tamsulosin HCl [Flomax] 0.4 mg PO DAILY 07/27/17 Naproxen [Naprosyn -] 500 mg PO BID PRN #30 mg 07/30/17 - Diagnosis (1) Alcohol dependence with uncomplicated withdrawal Current Visit: Yes Status: Acute (2) Cocaine dependence Current Visit: Yes Status: Acute Qualifiers: Substance use status: uncomplicated Qualified Code(s): F14.20 - Cocaine dependence, uncomplicated (3) Frequent falls Current Visit: No Status: Acute (4) Pneumothorax with hemothorax, traumatic Current Visit: No Status: Acute (5) Substance induced mood disorder Current Visit: No Status: Acute (6) Glaucoma, both eyes Current Visit: No Status: Chronic Qualifiers: Primary angle closure glaucoma type: unspecified type (7) Hepatitis C Current Visit: No Status: Chronic Qualifiers: Viral hepatitis chronicity: unspecified Hepatic coma status: without hepatic coma Qualified Code(s): B19.20 - Unspecified viral hepatitis C without hepatic coma (8) Hypertension Current Visit: No Status: Chronic Qualifiers: Hypertension type: essential hypertension Qualified Code(s): I10 - Essential (primary) hypertension (9) Neuropathy Current Visit: No Status: Chronic (10) Old cerebrovascular accident (CVA) without late effect Current Visit: No Status: Chronic (11) Weight loss Current Visit: No Status: Chronic (12) Arthritis of right hip Current Visit: Yes Status: Acute - AMA Did Patient Leave Against Medical Advice: No
[2017-12-03] MEDS: TAMSULOSIN HCL 0.4 MG CAP.ER.24H (FP) PO SCH (09:51)
[2017-12-03] MEDS: PRENATAL VITAMINS W/ FOLIC ACID TABLET (FP) PO SCH (09:51)
[2017-12-03] MEDS: IBUPROFEN 400 MG TABLET (FP) PO PRN (09:52)
[2017-12-03 09:53] VITALS: BP 137/84; PULSE 104; TEMP 97.7
== END 2017-12-03 10:10 | disposition home or self-care (01) | DRG 897 ==
LOC: YASAS 10:24 → Y6N 15:01
PROVIDERS: ADMIT Internal Medicine; ATTEND Internal Medicine
PROC: HZ2ZZZZ Detoxification Services for Substance Abuse Treatment (ICD-10-PCS; principal; 2017-11-29)
DX: F10.230 Alcohol dependence with withdrawal, uncomplicated (principal); F14.20 Cocaine dependence, uncomplicated; F19.24 Other psychoactive substance dependence with psychoactive substance-induced mood disorder; F25.9 Schizoaffective disorder, unspecified; F31.9 Bipolar disorder, unspecified; G47.00 Insomnia, unspecified; J44.9 Chronic obstructive pulmonary disease, unspecified; J45.909 Unspecified asthma, uncomplicated; B19.20 Unspecified viral hepatitis C without hepatic coma; I10 Essential (primary) hypertension; H91.92 Unspecified hearing loss, left ear; H40.9 Unspecified glaucoma; M16.11 Unilateral primary osteoarthritis, right hip; R29.6 Repeated falls; Z86.73 Personal history of transient ischemic attack (TIA), and cerebral infarction without residual deficits
CPT/HCPCS: 36415; 80053; 81003; 82962; 85027; 86593; 93005; 93010; 94640